=== PATIENT | male | born 1925 | race Caucasian/White ===

== ENCOUNTER 2016-07-18 19:30 | Inpatient (IN) | payer MEDICARE, OTHER ==
[2016-07-18] VITALS (7 sets, daily range): BP systolic 131–149; BP diastolic 47–57
[~2016-07-18] VITALS: Ht 172.7 cm; Wt 70.5 kg
[2016-07-18 19:50] LABS: NEG OBC FOB NEG; POS OBC FOB POS
[2016-07-18 20:08] LABS: BASO % 0 % (0-3); EOS % 1 % (0-3); LYMPH # 0.9 x10^3/uL (1.0-4.8); LYMPH % 10 % (24-48); MEAN CORPUSCULAR HEMOGLOBIN 37 pg (25-35); MEAN CORPUSCULAR HGB CONC 33 g/dL (31-37); MEAN CORPUSCULAR VOLUME 111 fL (79-100); MONO % 14 % (0-9); NEUT % 75 % (31-73); PLATELET COUNT 288 x10^3/uL (140-400); RED BLOOD COUNT 1.41 x10^6/uL (4.30-5.70); RED CELL DISTRIBUTION WIDTH 22.8 % (11.5-14.5); WHITE BLOOD COUNT 9.7 x10^3/uL (4.0-11.0)
[2016-07-18 20:09] LABS: HEMOGLOBIN 5.1 g/dL (13.0-17.5)
[2016-07-18 20:10] LABS: HEMATOCRIT 15.6 % (39.0-53.0)
[2016-07-18] MEDS ORDERED: MORPHINE SULFATE 2 MG/ML DISP.SYRIN. IV PRN (20:15)
[2016-07-18] MEDS ORDERED: ONDANSETRON PF 4 MG/2 ML VIAL. IV PRN (20:15)
[2016-07-18 20:18] LABS: INR 1.1 (0.8-1.1); PROTHROMBIN TIME PATIENT 13.4 SEC (11.7-14.0)
[2016-07-18 20:19] LABS: CALCIUM 8.4 mg/dL (8.5-10.1); CREATININE 1.3 mg/dL (0.7-1.3); GFR 52.1; POTASSIUM 3.5 mmol/L (3.5-5.1)
--- NOTE | 2016-07-18 20:21 | PHYS DOC ---
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 The patient was sent here for further evaluation workup and care. He complains of feeling fatigued and generally malaised. Onset today. Location GI tract. Duration intermittent. No alleviating factors. Review of systems is negative for chest pain shortness of breath fevers chills nausea vomiting. All other review of systems is negative unless otherwise noted in history of present illness. Review of Systems Review of Systems SEE ABOVE. Current Medications Current Medications Current Medications Medications (Trade) Dose Ordered Sig/[place] Start Time Stop Time Status Last Admin Dose Admin Sodium Chloride 1,000 ml @ 1,000 mls/hr 1X ONCE 07/18/16 19:45 07/18/16 20:44 UNV Physical Exam Physical Exam Constitutional: Well developed, well nourished, no acute distress, non-toxic appearance. HENT: Normocephalic, atraumatic, bilateral external ears normal, oropharynx moist, no oral exudates, nose normal. [] Eyes: PERRLA, EOMI, conjunctiva normal, no discharge. Neck: Normal range of motion, no tenderness, supple, no stridor. [] Cardiovascular:Heart rate regular rhythm, no murmur [] Lungs & Thorax: Bilateral breath sounds clear to auscultation Abdomen: Abdomen is soft and nontender. Rectal exam shows visually brown stool. No hemorrhoids noted. Skin: Warm, dry, no erythema, no rash. Pale Back: No tenderness, no CVA tenderness. [] Extremities: No tenderness, no cyanosis, no clubbing, ROM intact, no edema. [] Neurologic: Alert and oriented X 3, normal motor function, normal sensory function, no focal deficits noted. Psychologic: Affect normal, judgement normal, mood normal. [] Current Patient Data Lab Values Laboratory Tests Test 07/18/16 19:35 07/18/16 20:00 Stool Occult Blood Positive (NEG) White Blood Count 9.7 x10^3/uL (4.0-11.0) Red Blood Count 1.41 x10^6/uL (4.30-5.70) L Hemoglobin 5.1 g/dL (13.0-17.5) *L Hematocrit 15.6 % (39.0-53.0) *L Mean Corpuscular Volume 111 fL (79-100) H Mean Corpuscular Hemoglobin 37 pg (25-35) H Mean Corpuscular Hemoglobin Concent 33 g/dL (31-37) Red Cell Distribution Width 22.8 % (11.5-14.5) H Platelet Count 288 x10^3/uL (140-400) Neutrophils (%) (Auto) 75 % (31-73) H Lymphocytes (%) (Auto) 10 % (24-48) L Monocytes (%) (Auto) 14 % (0-9) H Eosinophils (%) (Auto) 1 % (0-3) Basophils (%) (Auto) 0 % (0-3) Neutrophils # (Auto) 7.3 x10^3uL (1.8-7.7) Lymphocytes # (Auto) 0.9 x10^3/uL (1.0-4.8) L Monocytes # (Auto) 1.3 x10^3/uL (0.0-1.1) H Eosinophils # (Auto) 0.1 x10^3/uL (0.0-0.7) Basophils # (Auto) 0.0 x10^3/uL (0.0-0.2) Platelet Estimate Pending Laboratory Tests 07/18/16 20:00 EKG EKG [] Radiology/Procedures Radiology/Procedures [] Course & Med Decision Making Course & Med Decision Making Pertinent Labs and Imaging studies reviewed. (See chart for details) [] 89-year-old male presenting with a severe anemia. Vital signs showed a heart rate of 85. Maintaining a normal blood pressure. Patient was mildly pale on exam. Rectal exam showed visibly dark brown stool. No gross blood on rectal exam. Blood work obtained which confirmed severe anemia. Type and cross obtained. Transfusion initiated. I consulted to Dr. Morales from GI and spoke on the phone with him about the patient. The patient was then admitted to our hospital for further evaluation workup and care. Dragon Disclaimer Dragon Disclaimer This electronic medical record was generated, in whole or in part, using a voice recognition dictation system. Departure Departure Impression: Primary Impression: GI bleed Additional Impressions: Severe anemia History of bladder cancer Disposition: ADMITTED INPATIENT Admitting Physician: Willie Luciano Condition: IMPROVED Critical Care Time Critical care time was [41] minutes exclusive of procedures. Time was spent evaluating the patient, reviewing blood work, discussing with the admitting provider, reevaluating the patient, ordering the administration of blood products and documenting. Problem Qualifiers Primary Impression: GI bleed GI bleed type/associated pathology: unspecified gastrointestinal hemorrhage type Qualified Codes: K92.2 - Gastrointestinal hemorrhage, unspecified BLANCO DE LOS SANTOS MD July 18, 2016 20:21
[2016-07-18 20:24] LABS: ALBUMIN 2.5 g/dL (3.4-5.0); DIRECT BILIRUBIN 0.1 mg/dL (0.0-0.2); TOTAL BILIRUBIN 0.2 mg/dL (0.2-1.0); TOTAL PROTEIN 5.5 g/dL (6.4-8.2)
[2016-07-18] MEDS ORDERED: ASPI-482 PO (20:24)
[2016-07-18] MEDS ORDERED: IPRA12.92 IH (20:24)
[2016-07-18] MEDS ORDERED: CITA10TA8 PO (20:24)
[2016-07-18] MEDS ORDERED: HYDR-971 PO (20:25)
[2016-07-18] MEDS ORDERED: NYST100054 PO (20:25)
[2016-07-18] MEDS ORDERED: ONDA4TAB7 PO (20:26)
[2016-07-18] MEDS ORDERED: SIMV20TA3 PO (20:26)
[2016-07-18] MEDS ORDERED: LORA1TAB PO (20:26)
[2016-07-18] MEDS ORDERED: IPRA4AER IH (20:26)
[2016-07-18] MEDS ORDERED: IV NORMAL SALINE 1000ML BAG 1,000 ML IV ONE (20:30)
[2016-07-18 21:28] LABS: % EOS 2 % (0-5); ANISOCYTOSIS MOD; PLT ESTIMATE ADEQUATE (ADEQUATE)
[2016-07-18] MEDS ORDERED: IV NORMAL SALINE 1000ML BAG 1,000 ML IV SCH (22:00)
[2016-07-18] MEDS: NYSTATIN 100,000 UNITS/ML 5 ML ORAL.SUSP. SWSW SCH (22:30)
[2016-07-18] MEDS ORDERED: IPRATRPIUM/ALBUTEROL 0.5/2.5MG 3 ML NEBU. NEB ONE (22:30)
[2016-07-19] VITALS (15 sets, daily range): BP systolic 137–177; BP diastolic 57–78
[2016-07-19] MEDS: IV NORMAL SALINE 1000ML BAG 1,000 ML IV SCH ×2 (06:00→19:20)
[2016-07-19 06:11] LABS: BASO % 0 % (0-3); EOS % 1 % (0-3); HEMATOCRIT 21.2 % (39.0-53.0); HEMOGLOBIN 7.3 g/dL (13.0-17.5); LYMPH % 10 % (24-48); MEAN CORPUSCULAR HEMOGLOBIN 36 pg (25-35); MEAN CORPUSCULAR HGB CONC 34 g/dL (31-37); MEAN CORPUSCULAR VOLUME 104 fL (79-100); MONO % 12 % (0-9); NEUT % 77 % (31-73); PLATELET COUNT 267 x10^3/uL (140-400); RED BLOOD COUNT 2.04 x10^6/uL (4.30-5.70); RED CELL DISTRIBUTION WIDTH 17.2 % (11.5-14.5); WHITE BLOOD COUNT 9.8 x10^3/uL (4.0-11.0)
[2016-07-19 06:21] LABS: CALCIUM 7.9 mg/dL (8.5-10.1); GFR 70.5; POTASSIUM 3.3 mmol/L (3.5-5.1)
[2016-07-19] MEDS: IPRATRPIUM/ALBUTEROL 0.5/2.5MG 3 ML NEBU. NEB SCH ×4 (07:25→19:34)
[2016-07-19] MEDS: NYSTATIN 100,000 UNITS/ML 5 ML ORAL.SUSP. SWSW SCH ×4 (08:43→20:49)
--- NOTE | 2016-07-19 08:58 | PDOC2 ---
CONSULT Date of Consult Date of Consult DATE: 07/19/16 TIME: 08:40 Reason for Consult Reason for Consult: Anemia/heme positive stool. Referring Physician Referring Physician: Dr. Luciano Source Source: Chart review, Patient History of Present Illness Reason for Visit: 89 y/o male sent from [place] after hemoglobin noted to be low (4-5). Per old records, baseline is 8-rob. No reports of any overt bleeding from staff or him ; in ER, heme positive brown stool. Currently denying pain, nausea or vomiting. Chronic issues with constipation; uses fiber with resultant diarrhea. Does not use regularly. Recently in [facility] with pneumonia and generally dilated GI tract/question of sigmoid volvulus, though sigmoidoscopy there w/in the week did not confirm and felt to have to have extrinsic bowel compression by the endoscopist. MCV there and here elevated--did not see any iron, b12 or folate determinations, though lab format difficult. 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 Admits to occasional heartburn w/o dysphagia. No PUD, GB, liver or pancreatic history above metastatic disease. Former smoker. No current alcohol use. On ASA 81mg daily; apparently no NSAID use. While at [facility], some consideration of EGD due to dilated stomach, but not done there or ever per him. Recalls no prior total colonoscopy (though sigmoid last week apparently w/o intrinsic lesion to transverse. GI family history not pertinent. Past Medical History Cardiovascular: CHF, Hyperlipidemia Pulmonary: COPD, Pneumonia Heme/Onc: Cancer (urothelial, s/p right nephrectomy) Psych: Anxiety, Depression Musculoskeletal: Osteoarthritis Past Surgical History Past Surgical History: Other (right nephrectomy) Family History Family History Not pertinent. Social History Quit ALCOHOL: none Drugs: None Lives: [facility] Current Problem List Problem List Problems Medical Problems: (1) GI bleed Status: Acute (2) History of bladder cancer Status: Acute (3) Severe anemia Status: Acute Current Medications Current Medications Current Medications Sodium Chloride 1,000 ml @ 1,000 mls/hr 1X ONCE IV Last administered on t 20:30; Start 07/18/16 at 20:30; Stop 07/18/16 at 21:29; Status DC Ondansetron HCl (Zofran) 4 mg PRN Q8HRS PRN IV NAUSEA/VOMITING; Start 07/18/16 at 20:15; Stop 07/19/16 at 20:14 Morphine Sulfate 2 mg PRN Q2HR PRN IV PAIN; Start 07/18/16 at 20:15; Stop 07/19 at 20:14 Sodium Chloride 1,000 ml @ 125 mls/hr Q8H IV Last administered on 07/18/16 22 :00; Start 07/18/16 at 22:00; Stop 07/19/16 at 05:44; Status DC Non-Formulary Medication 2 inhaler QID IH ; Start 07/19/16 at 09:00; Status UNV Nystatin 5 ml [id number] ; Start 07/18/16 at 22:30 Albuterol/ Ipratropium (Duoneb) 3 ml RTQID NEB Last administered on 07/19/16 07:25; Start 07/19/16 at 08:00 Albuterol/ Ipratropium (Duoneb) 3 ml 1X ONCE NEB ; Start 07/18/16 at 22:30; Stop 07/18/16 at 22:31; Status DC Sodium Chloride 1,000 ml @ 75 mls/hr [id number] IV Last administered on 06:00; Start 07/19/16 at 06:00 Active Scripts Active Reported Zofran (Ondansetron Hcl) 4 Mg Tablet 1 Tab PO Q6HRS Lorazepam 1 Mg Tablet 1 Tab PO TID Simvastatin 20 Mg Tablet 1 Tab PO QHS Combivent Respimat Inhal (Ipratropium/Albuterol Sulfate) 4 Gm Aer.w.adap 2 Inhaler IH QID Hollins 5-325 Tablet (Acetaminophen/Hydrocodone Bitart) 1 Each Tablet 1-2 Tab PO Q4-6HRS Nystatin 100,000 Unit/1 Ml Oral.susp 5 Ml PO QID Celexa (Citalopram Hydrobromide) 10 Mg Tablet 1 Tab PO DAILY Aspir 81 (Aspirin) 81 Mg Tablet.dr 1 Tab PO DAILY Atrovent Hfa (Ipratropium [place]) 12.9 Gm Hfa.aer.ad 12.9 Gm IH Allergies Allergies: Coded Allergies: pseudoephedrine (Verified Allergy, Intermediate, 07/18/16) ROS Review of System 10-point review otherwise negative. Physical Exam General: Alert, Oriented X3, No acute distress Lungs: Clear to auscultation Heart: Regular rate, Normal S1, Normal S2, No murmurs Abdomen: Normal bowel sounds, Soft, No tenderness, No hepatosplenomegaly, No masses Extremities: No cyanosis, No edema Skin: No significant lesion Neuro: Normal speech, Strength at 5/5 X4 ext, Normal tone, Sensation intact, Cranial nerves 3-12 NL, Reflexes 2+ Psych/Mental Status: Mental status NL, Mood NL MUSCULOSKELETAL: No deformity, No swelling Vitals VITALS Vital Signs Date Time Temp Pulse Resp B/P (MAP) Pulse Ox O2 Delivery O2 Flow Rate FiO2 07/19/16 07:27 93 Room Air 07/19/16 07:00 82 16 156/57 (90) 07/19/16 04:00 99.0 99.0 Labs Labs Laboratory Tests Test 07/18/16 19:35 07/18/16 20:00 07/19/16 05:30 Stool Occult Blood Positive (NEG) White Blood Count 9.7 x10^3/uL (4.0-11.0) 9.8 x10^3/uL (4.0-11.0) Red Blood Count 1.41 x10^6/uL (4.30-5.70) 2.04 x10^6/uL (4.30-5.70) Hemoglobin 5.1 g/dL (13.0-17.5) 7.3 g/dL (13.0-17.5) Hematocrit 15.6 % (39.0-53.0) 21.2 % (39.0-53.0) Mean Corpuscular Volume 111 fL (79-100) 104 fL (79-100) Mean Corpuscular Hemoglobin 37 pg (25-35) 36 pg (25-35) Mean Corpuscular Hemoglobin Concent 33 g/dL (31-37) 34 g/dL (31-37) Red Cell Distribution Width 22.8 % (11.5-14.5) 17.2 % (11.5-14.5) Platelet Count 288 x10^3/uL (140-400) 267 x10^3/uL (140-400) Neutrophils (%) (Auto) 75 % (31-73) 77 % (31-73) Lymphocytes (%) (Auto) 10 % (24-48) 10 % (24-48) Monocytes (%) (Auto) 14 % (0-9) 12 % (0-9) Eosinophils (%) (Auto) 1 % (0-3) 1 % (0-3) Basophils (%) (Auto) 0 % (0-3) 0 % (0-3) Neutrophils # (Auto) 7.3 x10^3uL (1.8-7.7) 7.5 x10^3uL (1.8-7.7) Lymphocytes # (Auto) 0.9 x10^3/uL (1.0-4.8) 1.0 x10^3/uL (1.0-4.8) Monocytes # (Auto) 1.3 x10^3/uL (0.0-1.1) 1.2 x10^3/uL (0.0-1.1) Eosinophils # (Auto) 0.1 x10^3/uL (0.0-0.7) 0.1 x10^3/uL (0.0-0.7) Basophils # (Auto) 0.0 x10^3/uL (0.0-0.2) 0.0 x10^3/uL (0.0-0.2) Segmented Neutrophils % 83 % (35-66) Lymphocytes % 9 % (24-48) Monocytes % 6 % (0-10) Eosinophils % 2 % (0-5) Platelet Estimate Adequate (ADEQUATE) Anisocytosis Mod Macrocytosis Mod Prothrombin Time 13.4 SEC (11.7-14.0) Prothromb Time International Ratio 1.1 (0.8-1.1) Activated Partial Thromboplast Time 29 SEC (24-38) Sodium Level 146 mmol/L (136-145) 145 mmol/L (136-145) Potassium Level 3.5 mmol/L (3.5-5.1) 3.3 mmol/L (3.5-5.1) Chloride Level 109 mmol/L (98-107) 110 mmol/L (98-107) Carbon Dioxide Level 27 mmol/L (21-32) 27 mmol/L (21-32) Anion Gap 10 (6-14) 8 (6-14) Blood Urea Nitrogen 28 mg/dL (8-26) 24 mg/dL (8-26) Creatinine 1.3 mg/dL (0.7-1.3) 1.0 mg/dL (0.7-1.3) Estimated GFR (Cockcroft-Gault) 52.1 70.5 Glucose Level 111 mg/dL (70-99) 90 mg/dL (70-99) Calcium Level 8.4 mg/dL (8.5-10.1) 7.9 mg/dL (8.5-10.1) Total Bilirubin 0.2 mg/dL (0.2-1.0) Direct Bilirubin 0.1 mg/dL (0.0-0.2) Aspartate Amino Transf (AST/SGOT) 45 U/L (15-37) Alanine Aminotransferase (ALT/SGPT) 37 U/L (16-63) Alkaline Phosphatase 83 U/L (46-116) Total Protein 5.5 g/dL (6.4-8.2) Albumin 2.5 g/dL (3.4-5.0) Laboratory Tests Test 07/18/16 19:35 07/18/16 20:00 07/19/16 05:30 Stool Occult Blood Positive (NEG) White Blood Count 9.7 x10^3/uL (4.0-11.0) 9.8 x10^3/uL (4.0-11.0) Red Blood Count 1.41 x10^6/uL (4.30-5.70) 2.04 x10^6/uL (4.30-5.70) Hemoglobin 5.1 g/dL (13.0-17.5) 7.3 g/dL (13.0-17.5) Hematocrit 15.6 % (39.0-53.0) 21.2 % (39.0-53.0) Mean Corpuscular Volume 111 fL (79-100) 104 fL (79-100) Mean Corpuscular Hemoglobin 37 pg (25-35) 36 pg (25-35) Mean Corpuscular Hemoglobin Concent 33 g/dL (31-37) 34 g/dL (31-37) Red Cell Distribution Width 22.8 % (11.5-14.5) 17.2 % (11.5-14.5) Platelet Count 288 x10^3/uL (140-400) 267 x10^3/uL (140-400) Neutrophils (%) (Auto) 75 % (31-73) 77 % (31-73) Lymphocytes (%) (Auto) 10 % (24-48) 10 % (24-48) Monocytes (%) (Auto) 14 % (0-9) 12 % (0-9) Eosinophils (%) (Auto) 1 % (0-3) 1 % (0-3) Basophils (%) (Auto) 0 % (0-3) 0 % (0-3) Neutrophils # (Auto) 7.3 x10^3uL (1.8-7.7) 7.5 x10^3uL (1.8-7.7) Lymphocytes # (Auto) 0.9 x10^3/uL (1.0-4.8) 1.0 x10^3/uL (1.0-4.8) Monocytes # (Auto) 1.3 x10^3/uL (0.0-1.1) 1.2 x10^3/uL (0.0-1.1) Eosinophils # (Auto) 0.1 x10^3/uL (0.0-0.7) 0.1 x10^3/uL (0.0-0.7) Basophils # (Auto) 0.0 x10^3/uL (0.0-0.2) 0.0 x10^3/uL (0.0-0.2) Segmented Neutrophils % 83 % (35-66) Lymphocytes % 9 % (24-48) Monocytes % 6 % (0-10) Eosinophils % 2 % (0-5) Platelet Estimate Adequate (ADEQUATE) Anisocytosis Mod Macrocytosis Mod Prothrombin Time 13.4 SEC (11.7-14.0) Prothromb Time International Ratio 1.1 (0.8-1.1) Activated Partial Thromboplast Time 29 SEC (24-38) Sodium Level 146 mmol/L (136-145) 145 mmol/L (136-145) Potassium Level 3.5 mmol/L (3.5-5.1) 3.3 mmol/L (3.5-5.1) Chloride Level 109 mmol/L (98-107) 110 mmol/L (98-107) Carbon Dioxide Level 27 mmol/L (21-32) 27 mmol/L (21-32) Anion Gap 10 (6-14) 8 (6-14) Blood Urea Nitrogen 28 mg/dL (8-26) 24 mg/dL (8-26) Creatinine 1.3 mg/dL (0.7-1.3) 1.0 mg/dL (0.7-1.3) Estimated GFR (Cockcroft-Gault) 52.1 70.5 Glucose Level 111 mg/dL (70-99) 90 mg/dL (70-99) Calcium Level 8.4 mg/dL (8.5-10.1) 7.9 mg/dL (8.5-10.1) Total Bilirubin 0.2 mg/dL (0.2-1.0) Direct Bilirubin 0.1 mg/dL (0.0-0.2) Aspartate Amino Transf (AST/SGOT) 45 U/L (15-37) Alanine Aminotransferase (ALT/SGPT) 37 U/L (16-63) Alkaline Phosphatase 83 U/L (46-116) Total Protein 5.5 g/dL (6.4-8.2) Albumin 2.5 g/dL (3.4-5.0) Images Images None here. Assessment/Plan Assessment/Plan IMP: 1. Anemia, likely multifactorial--malignancy, ACD, chemo probably contribute. Elevated MCV would argue against pure iron deficiency. Given bony mets, myelophthesis? 2. Minor dyspepsia. 3. Chronic constipation; pain meds likely aggravate, but historically good response to OTC's. 4. Heme positive stool. REC: 1. Given underlying, likely at some point terminal, malignancy an extensive w/u for the heme positivity seems not to be indicated. 2. Will check B12 and folate levels and see if can do iron profile on ER blood prior to transfusion. 3. Transfuse prn; address any deficiencies found. 4. Consider Palliative Care opinion. --other pending. Thank you for allowing me to assist in the care of this patient. Please call if questions. NIVIA BUCHANAN MD July 19, 2016 08:58
[2016-07-19] MEDS ORDERED: IPRATROPIUM IH SCH (09:00)
[2016-07-19] MEDS ORDERED: ALBUTEROL SULFATE IH SCH (09:00)
--- NOTE | 2016-07-19 09:18 | ACF ---
Admission Forms Criteria ANEMIA, IRON DEFICIENCY OR UNSPECIFIED Clinical Indications for Inpatient Care (Place 'X' for any and all applicable criteria): Admission is indicated for ANY ONE of the following(1)(2)(3)(4)(5)(6)(7): [X] I. Inpatient admission required rather than observation care (Also use Anemia, Iron Deficiency or Unspecified: Observation Care guideline as appropriate) because of ANY ONE of the following: [] a) Hemodynamic instability that is severe or persistent [] b) Active bleeding that cannot be rapidly controlled [] c) CVS symptoms (i.e., dyspnea, chest pain, heart failure) that are severe or persistent [] d) Neurologic symptoms (i.e., cognitive impairment, recurrent syncope or near syncope) that are severe or persistent [] e) Cardiac arrhythmias of immediate concern [] f) Acute peripheral ischemia (e.g., pulseless, cool, mottled, or cyanotic extremity) [] g) High-risk low platelet count [] h) Acute renal failure [] i) Ongoing transfusion for blood loss (greater than 2 units) [] j) IV fluid to replace significant ongoing (eg, >24 hours) losses (> 3 L/m2 per day) [] k) Pulmonary artery catheter monitoring [] l) Supplemental oxygen or respiratory treatments for over 24 hours that are performable only in acute inpatient setting [] m) Immediate inpatient surgery [X] n) Other condition, treatment or monitoring requiring inpatient admission [] II Active massive hemorrhage [] III. Active hemolysis with rapidly progressive anemia [A](6) Extended stay beyond goal length of stay may be needed for (17)(18) []a) Diagnosed cause of anemia requiring longer hospitalization (eg, active GI bleeding, immune hemolysis requiring electrophoresis, complications of malignancy requiring acute care []b) Continued emergent anemia indicators (23) []c) Transfusion reactions []d) Associated leukopenia or thrombocytopenia needing inpatient care []e) Active comorbidities (eg, renal failure, heart failure) The original [facility] Care Guidelines content created by [facility] has been revised. The portions of the content which have been revised are identified through the use of italic text or in bold. [facility] Guidelines has neither reviewed nor approved the modified material. All other unmodified content is copyright [facility] Care Guidelines. Please see references footnoted in the original [facility] edition 2016 Admission Criteria Met?: Yes LA GRIFFITHS July 19, 2016 09:18
[2016-07-19 09:52] LABS: % SAT IRON 50 % (15-34); IRON,SERUM 106 ug/dL (65-175)
[2016-07-19] MEDS ORDERED: HYDROcodone/APAP 5/325MG 1 TAB TABLET PO PRN (12:30)
[2016-07-19] MEDS ORDERED: POTASSIUM CHLORIDE 20MEQ 50 ML IV ONE (13:00)
[2016-07-19] MEDS ORDERED: POTASSIUM CHLORIDE 20 MEQ TABLET.ER. PO ONE (13:15)
[2016-07-19] MEDS: CITALOPRAM 10 MG TABLET. PO SCH (13:33)
--- NOTE | 2016-07-19 13:33 | HP ---
ADMIT DATE: 07/19/2016 CHIEF COMPLAINT: Anemia. HISTORY OF PRESENT ILLNESS: The patient is a pleasant 89-year-old male who has been suffering from acute on chronic anemia for some time. He apparently did have a GI bleed recently. He was at [facility]. He also has bladder cancer. He is on chemotherapy. He had chemotherapy 2 weeks ago. He was sent from [facility] to [facility] us. It is a residential facility. While there, they did a routine blood draw which has shown hemoglobin of 5. He has now been transferred to our facility. He is in the ICU. We gave him 2 units of packed red blood cells last night. This morning, his hemoglobin is up to 7.3. We plan to consult Hematology/Oncology and Gastroenterology. PAST MEDICAL HISTORY: Bladder cancer, chemotherapy, and sigmoidoscopy. ALLERGIES: PSEUDOEPHEDRINE. FAMILY HISTORY: Coronary artery disease. SOCIAL HISTORY: Does not drink, smoke, or take drugs. MEDICATIONS: Reviewed. Please refer to the MRAD. REVIEW OF SYSTEMS: GENERAL: He complains of weakness. SKIN: No bruising, hair changes, or rashes. EYES: No blurred, double, or loss of vision. NOSE AND THROAT: No history of nosebleeds, hoarseness, or sore throat. HEART: No history of palpitations, chest pain, or shortness of breath on exertion. LUNGS: Denies cough, hemoptysis, wheezing, or shortness of breath. GASTROINTESTINAL: Denies changes in appetite, nausea, vomiting, diarrhea, or constipation. GENITOURINARY: No history of frequency, urgency, hesitancy, or nocturia. NEUROLOGIC: Denies history of numbness, tingling, tremor, or weakness. PSYCHIATRIC: He complains of depression. He wants to get out of the hospital. ENDOCRINE: No history of heat or cold intolerance, polyuria, or polydipsia. EXTREMITIES: Denies muscle weakness, joint pain, pain on walking, or stiffness. PHYSICAL EXAMINATION: VITAL SIGNS: Temperature afebrile, pulse 67, respirations 18, and blood pressure 144/90. GENERAL: He is alert, cooperative. His family is present. They are good support for him. HEART: Normal S1, S2. LUNGS: Clear. ABDOMEN: Soft, decreased bowel sounds. EXTREMITIES: No edema. SKIN: No rashes. ENDOCRINE: No thyromegaly. LYMPHATICS: No cervical nodes. HEMATOPOIETIC: No bruising. PSYCHIATRIC: He seems depressed. LABORATORY DATA: White count 9, hemoglobin 5, it is now up to 7.3; and platelets 288. Electrolytes: Sodium 146, potassium 3.5, chloride 109, bicarbonate 27, BUN 28, creatinine 1.3, and glucose 111. AST slightly high at 45 and total protein low at 5.5. INR is 1. ASSESSMENT AND PLAN: Acute on chronic gastrointestinal bleed and acute on chronic anemia, suspect multifactorial including bone marrow suppression from chemotherapy and a concomitant gastrointestinal bleed. The patient has been admitted. We will consult Gastroenterology and Hematology/Oncology. Transfuse p.r.n. hemoglobin less than 8. Resume home medicines, PT, OT, frequent hemoglobin levels, and ICU monitoring. PROGNOSIS: Guarded. MAAME MORA DO DR: ADEN/gloria JOB#: [id number] / [id number]
[2016-07-19] MEDS ORDERED: LORazepam 1 MG TABLET PO PRN (14:00)
[2016-07-19] MEDS ORDERED: LORazepam 1 MG TABLET PO SCH (14:00)
[2016-07-19] MEDS ORDERED: SIMVASTATIN 20 MG TABLET PO SCH (21:00)
[2016-07-19] MEDS: amLODIPine BESYLATE 10 MG TABLET PO SCH (21:30)
[2016-07-20 00:05] VITALS: BP 188/79
[2016-07-20] MEDS: METOPROLOL TART IMMED RELEASE 25 MG TABLET. PO SCH ×3 (01:13→21:01)
[2016-07-20 03:26] VITALS: BP 129/56
[2016-07-20 07:00] VITALS: BP 168/74
[2016-07-20] MEDS: NYSTATIN 100,000 UNITS/ML 5 ML ORAL.SUSP. SWSW SCH ×4 (08:19→21:00)
[2016-07-20] MEDS: CITALOPRAM 10 MG TABLET. PO SCH (08:20)
[2016-07-20] MEDS: IPRATRPIUM/ALBUTEROL 0.5/2.5MG 3 ML NEBU. NEB SCH ×4 (08:20→19:29)
[2016-07-20] MEDS: amLODIPine BESYLATE 10 MG TABLET PO SCH (08:21)
--- NOTE | 2016-07-20 08:43 | PDOC ---
G I PROGRESS NOTE Subjective No GI complaints. Denies abdominal pain. Eating w/o problem. Objective No reports of any overt bleeding. Physical Exam Lungs clear. RRR Abdomen soft, not tender nor distended. Review of Relevant I have reviewed the following items earnest (where applicable) has been applied. Labs Laboratory Tests Test 07/18/16 19:35 07/18/16 20:00 07/19/16 05:30 07/19/16 06:00 Stool Occult Blood Positive (NEG) White Blood Count 9.7 x10^3/uL (4.0-11.0) 9.8 x10^3/uL (4.0-11.0) Red Blood Count 1.41 x10^6/uL (4.30-5.70) 2.04 x10^6/uL (4.30-5.70) Hemoglobin 5.1 g/dL (13.0-17.5) 7.3 g/dL (13.0-17.5) Hematocrit 15.6 % (39.0-53.0) 21.2 % (39.0-53.0) Mean Corpuscular Volume 111 fL (79-100) 104 fL (79-100) Mean Corpuscular Hemoglobin 37 pg (25-35) 36 pg (25-35) Mean Corpuscular Hemoglobin Concent 33 g/dL (31-37) 34 g/dL (31-37) Red Cell Distribution Width 22.8 % (11.5-14.5) 17.2 % (11.5-14.5) Platelet Count 288 x10^3/uL (140-400) 267 x10^3/uL (140-400) Neutrophils (%) (Auto) 75 % (31-73) 77 % (31-73) Lymphocytes (%) (Auto) 10 % (24-48) 10 % (24-48) Monocytes (%) (Auto) 14 % (0-9) 12 % (0-9) Eosinophils (%) (Auto) 1 % (0-3) 1 % (0-3) Basophils (%) (Auto) 0 % (0-3) 0 % (0-3) Neutrophils # (Auto) 7.3 x10^3uL (1.8-7.7) 7.5 x10^3uL (1.8-7.7) Lymphocytes # (Auto) 0.9 x10^3/uL (1.0-4.8) 1.0 x10^3/uL (1.0-4.8) Monocytes # (Auto) 1.3 x10^3/uL (0.0-1.1) 1.2 x10^3/uL (0.0-1.1) Eosinophils # (Auto) 0.1 x10^3/uL (0.0-0.7) 0.1 x10^3/uL (0.0-0.7) Basophils # (Auto) 0.0 x10^3/uL (0.0-0.2) 0.0 x10^3/uL (0.0-0.2) Segmented Neutrophils % 83 % (35-66) Lymphocytes % 9 % (24-48) Monocytes % 6 % (0-10) Eosinophils % 2 % (0-5) Platelet Estimate Adequate (ADEQUATE) Anisocytosis Mod Macrocytosis Mod Prothrombin Time 13.4 SEC (11.7-14.0) Prothromb Time International Ratio 1.1 (0.8-1.1) Activated Partial Thromboplast Time 29 SEC (24-38) Sodium Level 146 mmol/L (136-145) 145 mmol/L (136-145) Potassium Level 3.5 mmol/L (3.5-5.1) 3.3 mmol/L (3.5-5.1) Chloride Level 109 mmol/L (98-107) 110 mmol/L (98-107) Carbon Dioxide Level 27 mmol/L (21-32) 27 mmol/L (21-32) Anion Gap 10 (6-14) 8 (6-14) Blood Urea Nitrogen 28 mg/dL (8-26) 24 mg/dL (8-26) Creatinine 1.3 mg/dL (0.7-1.3) 1.0 mg/dL (0.7-1.3) Estimated GFR (Cockcroft-Gault) 52.1 70.5 Glucose Level 111 mg/dL (70-99) 90 mg/dL (70-99) Calcium Level 8.4 mg/dL (8.5-10.1) 7.9 mg/dL (8.5-10.1) Total Bilirubin 0.2 mg/dL (0.2-1.0) Direct Bilirubin 0.1 mg/dL (0.0-0.2) Aspartate Amino Transf (AST/SGOT) 45 U/L (15-37) Alanine Aminotransferase (ALT/SGPT) 37 U/L (16-63) Alkaline Phosphatase 83 U/L (46-116) Total Protein 5.5 g/dL (6.4-8.2) Albumin 2.5 g/dL (3.4-5.0) Iron Level 106 ug/dL (65-175) Total Iron Binding Capacity 211 ug/dL (250-450) Iron Saturation 50 % (15-34) Nasal Screen MRSA (PCR) Negative (Negative) B12 and folate pending. Iron studies likely confounded by transfusion, but low TIBC c/w element of ACD. Medications Current Medications Sodium Chloride 1,000 ml @ 1,000 mls/hr 1X ONCE IV Last administered on 20:30; Start 07/18/16 at 20:30; Stop 07/18/16 at 21:29; Status DC Ondansetron HCl (Zofran) 4 mg PRN Q8HRS PRN IV NAUSEA/VOMITING; Start 07/18/16 at 20:15; Stop 07/19/16 at 20:14; Status DC Morphine Sulfate 2 mg PRN Q2HR PRN IV PAIN; Start 07/18/16 at 20:15; Stop 07/19 at 20:14; Status DC Sodium Chloride 1,000 ml @ 125 mls/hr Q8H IV Last administered on 07/18/16 22 :00; Start 07/18/16 at 22:00; Stop 07/19/16 at 05:44; Status DC Non-Formulary Medication 2 inhaler QID IH ; Start 07/19/16 at 09:00; Status UNV Nystatin 5 ml [id number] Last administered on 07/20/16 08:19; Start at 22:30 Albuterol/ Ipratropium (Duoneb) 3 ml RTQID NEB Last administered on 07/20/16 08:20; Start 07/19/16 at 08:00 Albuterol/ Ipratropium (Duoneb) 3 ml 1X ONCE NEB ; Start 07/18/16 at 22:30; Stop 07/18/16 at 22:31; Status DC Sodium Chloride 1,000 ml @ 75 mls/hr [id number] IV Last administered on 06:00; Start 07/19/16 at 06:00; Stop 07/19/16 at 21:18; Status DC Citalopram Hydrobromide (CeleXA) 10 mg DAILY PO Last administered on 07/20/16 08:20; Start 07/19/16 at 13:00 Acetaminophen/ Hydrocodone Bitart (Lortab 5/325) . QIDPRN PRN PO MODERATE TO SEVERE PAIN; Start 07/19/16 at 12:30 Lorazepam (Ativan) 1 mg TID PO ; Start 07/19/16 at 14:00; Stop 07/19/16 at 14:00 ; Status DC Simvastatin (Zocor) 20 mg QHS PO Last administered on 07/19/16 20:49; Start at 21:00; Stop 07/19/16 at 21:21; Status DC Lorazepam (Ativan) 1 mg PRN TID PRN PO ANXIETY / AGITATION Last administered on 07/20/16 01:13; Start 07/19/16 at 14:00 Potassium Chloride 50 ml @ 50 mls/hr 1X ONCE IV ; Start 07/19/16 at 13:00; Stop 07/19/16 at 13:59; Status Cancel Levofloxacin/ Dextrose 50 ml @ 50 mls/hr Q24H IV ; Start 07/19/16 at 13:00; Status Cancel Potassium Chloride (Klor-Con) 20 meq 1X ONCE PO Last administered on 13:33; Start 07/19/16 at 13:15; Stop 07/19/16 at 13:16; Status DC Amlodipine Besylate (Norvasc) 10 mg DAILY PO Last administered on 07/20/16 08: 21; Start 07/19/16 at 21:30 Atorvastatin Calcium (Lipitor) 10 mg QHS PO ; Start 07/20/16 at 21:00 Metoprolol Tartrate (Lopressor) 25 mg BID PO Last administered on 07/20/16 08: 20; Start 07/20/16 at 01:00 Active Scripts Active Reported Zofran (Ondansetron Hcl) 4 Mg Tablet 1 Tab PO Q6HRS Lorazepam 1 Mg Tablet 1 Tab PO TID Simvastatin 20 Mg Tablet 1 Tab PO QHS Combivent Respimat Inhal (Ipratropium/Albuterol Sulfate) 4 Gm Aer.w.adap 2 Inhaler IH QID [place] 5-325 Tablet (Acetaminophen/Hydrocodone Bitart) 1 Each Tablet 1-2 Tab PO Q4-6HRS Nystatin 100,000 Unit/1 Ml Oral.susp 5 Ml PO QID Celexa (Citalopram Hydrobromide) 10 Mg Tablet 1 Tab PO DAILY Aspir 81 (Aspirin) 81 Mg Tablet.dr 1 Tab PO DAILY Atrovent Hfa (Ipratropium [place]) 12.9 Gm Hfa.aer.ad 12.9 Gm IH Vitals/I & O Vital Sign - Last 24 Hours 07/19/16 07/19/16 07/19/16 07/19/16 09:00 10:00 10:58 11:00 Pulse 94 74 84 Resp 18 14 23 B/P (MAP) 159/60 (93) 169/70 (103) 167/72 (103) Pulse Ox 95 96 96 O2 Delivery Room Air Room Air Room Air Room Air 07/19/16 07/19/16 07/19/16 07/19/16 12:00 15:00 16:00 16:13 Temp 97.8 98.1 97.8 98.1 Pulse 79 79 Resp 28 18 B/P (MAP) 155/61 (92) 159/68 (98) Pulse Ox 98 97 O2 Delivery Room Air Room Air Room Air Room Air 07/19/16 07/19/16 07/19/16 07/19/16 19:25 20:00 20:45 21:30 Temp 97.9 97.9 Pulse 92 92 Resp 18 B/P (MAP) 177/78 (111) 177/78 Pulse Ox 95 96 O2 Delivery Room Air Room Air Room Air 07/20/16 07/20/16 07/20/16 07/20/16 00:05 01:13 03:26 07:00 Temp 98.1 98.0 98.0 98.1 98.0 98.0 Pulse 87 87 80 83 Resp 18 18 18 B/P (MAP) 188/79 (115) 188/79 129/56 (80) 168/74 (105) Pulse Ox 93 94 95 O2 Delivery Room Air Room Air Room Air 07/20/16 07/20/16 07/20/16 08:20 08:21 08:23 Pulse 83 83 B/P (MAP) 168/74 168/74 Pulse Ox 96 O2 Delivery Room Air Intake and Output 07/19/16 07/19/16 07/20/16 15:00 23:00 07:00 Intake Total 150 ml 200 ml 400 ml Output Total 45 ml 600 ml 300 ml Balance 105 ml -400 ml 100 ml Problem List Problems Medical Problems: (1) GI bleed Status: Acute (2) History of bladder cancer Status: Acute (3) Severe anemia Status: Acute Assessment Anemia, multifactorial. Plan of Care Note Await pending data. Monitor for overt bleeding. OK to consider discharge from GI standpoint. NIVIA BUCHANAN MD July 20, 2016 08:43
--- NOTE | 2016-07-20 10:55 | PDOC1 ---
History and Physical Date of Admission Date of Admission DATE: 07/18/16 Identification/Chief Complaint Chief Complaint anemia, metastatic bladder cancer Problems: History of Present Illness History of Present Illness 89 yo M with prolonged unpleasant stay at [facility] earlier this month, who had just been transferred to [place] across the street, but when they checked Hgb values for baseline values there, he was found on 07/18 to have Hgb ~5g/dL range. 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 Heme positive brown stools. He rec'd 2U PRBCs overnight on 07/18/16, and his Hgb rebounded from 5.1 g/dL to 7.3g/dL yesterday to 8.4g/dL today, more than an appropriate response. He is itching to get back to rehab. Two months ago , of note, he was living alone, maintaining well by himself. Certainly he has had setbacks since then. Past Medical History Cardiovascular: CHF, Hyperlipidemia Pulmonary: COPD, Pneumonia Heme/Onc: Cancer (urothelial, s/p right nephrectomy) Psych: Anxiety, Depression Musculoskeletal: Osteoarthritis Past Surgical History Past Surgical History: Other (right nephrectomy) Social History Smoke: Quit ALCOHOL: none Drugs: None Current Problem List Problem List Problems Medical Problems: (1) GI bleed Status: Acute (2) History of bladder cancer Status: Acute (3) Severe anemia Status: Acute Problems: Current Medications Current Medications Current Medications Sodium Chloride 1,000 ml @ 1,000 mls/hr 1X ONCE IV Last administered on 20:30; Start 07/18/16 at 20:30; Stop 07/18/16 at 21:29; Status DC Ondansetron HCl (Zofran) 4 mg PRN Q8HRS PRN IV NAUSEA/VOMITING; Start 07/18/16 at 20:15; Stop 07/19/16 at 20:14; Status DC Morphine Sulfate 2 mg PRN Q2HR PRN IV PAIN; Start 07/18/16 at 20:15; Stop 07/19 at 20:14; Status DC Sodium Chloride 1,000 ml @ 125 mls/hr Q8H IV Last administered on 07/18/16 22 :00; Start 07/18/16 at 22:00; Stop 07/19/16 at 05:44; Status DC Non-Formulary Medication 2 inhaler QID IH ; Start 07/19/16 at 09:00; Status UNV Nystatin 5 ml [id number] Last administered on 07/20/16 08:19; Start at 22:30 Albuterol/ Ipratropium (Duoneb) 3 ml RTQID NEB Last administered on 07/20/16 08:20; Start 07/19/16 at 08:00 Albuterol/ Ipratropium (Duoneb) 3 ml 1X ONCE NEB ; Start 07/18/16 at 22:30; Stop 07/18/16 at 22:31; Status DC Sodium Chloride 1,000 ml @ 75 mls/hr [id number] IV Last administered on 06:00; Start 07/19/16 at 06:00; Stop 07/19/16 at 21:18; Status DC Citalopram Hydrobromide (CeleXA) 10 mg DAILY PO Last administered on 07/20/16 08:20; Start 07/19/16 at 13:00 Acetaminophen/ Hydrocodone Bitart (Lortab 5/325) . QIDPRN PRN PO MODERATE TO SEVERE PAIN; Start 07/19/16 at 12:30 Lorazepam (Ativan) 1 mg TID PO ; Start 07/19/16 at 14:00; Stop 07/19/16 at 14:00 ; Status DC Simvastatin (Zocor) 20 mg QHS PO Last administered on 07/19/16 20:49; Start at 21:00; Stop 07/19/16 at 21:21; Status DC Lorazepam (Ativan) 1 mg PRN TID PRN PO ANXIETY / AGITATION Last administered on 07/20/16 01:13; Start 07/19/16 at 14:00 Potassium Chloride 50 ml @ 50 mls/hr 1X ONCE IV ; Start 07/19/16 at 13:00; Stop 07/19/16 at 13:59; Status Cancel Levofloxacin/ Dextrose 50 ml @ 50 mls/hr Q24H IV ; Start 07/19/16 at 13:00; Status Cancel Potassium Chloride (Klor-Con) 20 meq 1X ONCE PO Last administered on 5/27/ 17at 13:33; Start 07/19/16 at 13:15; Stop 07/19/16 at 13:16; Status DC Amlodipine Besylate (Norvasc) 10 mg DAILY PO Last administered on 07/20/16 08: 21; Start 07/19/16 at 21:30 Atorvastatin Calcium (Lipitor) 10 mg QHS PO ; Start 07/20/16 at 21:00 Metoprolol Tartrate (Lopressor) 25 mg BID PO Last administered on 07/20/16 08: 20; Start 07/20/16 at 01:00 Active Scripts Active Reported Zofran (Ondansetron Hcl) 4 Mg Tablet 1 Tab PO Q6HRS Lorazepam 1 Mg Tablet 1 Tab PO TID Simvastatin 20 Mg Tablet 1 Tab PO QHS Combivent Respimat Inhal (Ipratropium/Albuterol Sulfate) 4 Gm Aer.w.adap 2 Inhaler IH QID [place] 5-325 Tablet (Acetaminophen/Hydrocodone Bitart) 1 Each Tablet 1-2 Tab PO Q4-6HRS Nystatin 100,000 Unit/1 Ml Oral.susp 5 Ml PO QID Celexa (Citalopram Hydrobromide) 10 Mg Tablet 1 Tab PO DAILY Aspir 81 (Aspirin) 81 Mg Tablet.dr 1 Tab PO DAILY Atrovent Hfa (Ipratropium [place]) 12.9 Gm Hfa.aer.ad 12.9 Gm IH Allergies Allergies: Coded Allergies: pseudoephedrine (Verified Allergy, Intermediate, 07/18/16) ROS General: YES: Fatigue, Malaise, No: Chills, Night Sweats, Appetite, Other PSYCHOLOGICAL ROS: YES: Anxiety, Depression Eyes: No Blurry vision, No Decreased vision, No Double vision, No Dry eyes, No Excessive tearing, No Eye Pain, No Itchy Eyes, No Loss of vision, No Photophobia , No Scotomata, No Uses contacts, No Uses glasses, No Other HEENT: No: Heacaches, Visual Changes, Hearing change, Nasal congestion, Nasal discharge, Oral lesions, Sinus pain, Sore Throat, Epistaxis, Sneezing, Snoring, Tinnitus, Vertigo, Vocal changes, Other ALLERGY AND IMMUNOLOGY: No: Hives, Insect Bite Sensitivity, Itchy/Watery Eyes, Nasal Congestion, Post Nasal Drip, Seasonal Allergies, Other Hematological and Lymphatic: YES: Blood Transfusions Respiratory: No: Cough, Hemoptysis, Orthopnea, Pleuritic Pain, Shortness of breath, SOB with excertion, Sputum Changes, Stridor, Tachypnea, Wheezing, Other Cardiovascular: yes Edema Gastrointestinal: Yes Nausea, Yes Abdominal Pain, Yes Other (trouble swallowing ) Genitourinary: No Dysuria, No Frequency, No Incontinence, No Hematuria, No Retention, No Discharge, No Urgency, No Pain, No Flank Pain, No Other, No , No , No , No , No , No , No Musculoskeletal: Yes Muscular Weakness Neurological: No Behavorial Changes, No Bowel/Bladder ControlChng, No Confusion , No Dizziness, No Gait Disturbance, No Headaches, No Impaired Coord/balance, No Memory Loss, No Numbness/Tingling, No Seizures, No Speech Problems, No Tremors, No Visual Changes, No Weakness, No Other Skin: No Dry Skin, No Eczema, No Hair Changes, No Lumps, No Mole Changes, No Mottling, No Nail Changes, No Pruritus, No Rash, No Skin Lesion Changes, No Other, No Acne Physical Exam General: Alert, Oriented X3, Cooperative, No acute distress HEENT: Atraumatic, EOMI, Mucous membr. moist/pink Lungs: Clear to auscultation, Normal air movement Heart: no gallops, no murmurs Abdomen: Normal bowel sounds, Soft, No tenderness, No hepatosplenomegaly Rectal Exam: not examined Extremities: No clubbing, No cyanosis, No edema Skin: No rashes, No breakdown, No significant lesion Neuro: Normal gait, Normal speech, Strength at 5/5 X4 ext, Normal tone, Sensation intact Psych/Mental Status: Mental status NL Vitals Vitals Vital Signs Date Time Temp Pulse Resp B/P (MAP) Pulse Ox O2 Delivery O2 Flow Rate FiO2 07/20/16 08:23 96 Room Air 07/20/16 08:21 83 168/74 07/20/16 07:00 98.0 18 98.0 Labs Labs Laboratory Tests Hgb up to 8.4 today, from 7.3 yesterday and 5.1 on 07/18 (which triggered transfusion of 2U PRBCs VTE Prophylaxis Ordered VTE Prophylaxis Devices: Yes VTE Pharmacological Prophylaxi: Contraindicated Assessment/Plan Assessment/Plan 89 yo M c metastatic urothelial cancer, on active chemotherapy with single- agent gemzar (last dose 07/04/16), transferred from [place] on Thu07/18/16 due to worsened [id number] anemia (Hgb value 4-5g/dL range). He rec'd 2U PRBCs overnight on 07/18/16, and his Hgb value rebounded appropriately. Coags normal. Agree with GI that a awhy-se-doxg approach here is reasonable. Overall prognosis is poor due to cancer diagnosis, but he does not need to be in acute inpt setting now. Transfer back to [facility] so that he can get back to working on strength/conditioning. SYLVESTER FERRER MD July 20, 2016 10:55
[2016-07-20] MEDS ORDERED: POTASSIUM CHLORIDE 20 MEQ TABLET.ER. PO ONE (11:30)
[2016-07-20 12:53] LABS: BASO # 0.1 x10^3/uL (0.0-0.2); BASO % 1 % (0-3); EOS % 1 % (0-3); HEMATOCRIT 24.2 % (39.0-53.0); HEMOGLOBIN 8.4 g/dL (13.0-17.5); LYMPH # 0.7 x10^3/uL (1.0-4.8); LYMPH % 8 % (24-48); MEAN CORPUSCULAR HEMOGLOBIN 35 pg (25-35); MEAN CORPUSCULAR HGB CONC 35 g/dL (31-37); MEAN CORPUSCULAR VOLUME 102 fL (79-100); MONO % 11 % (0-9); NEUT % 79 % (31-73); PLATELET COUNT 326 x10^3/uL (140-400); RED BLOOD COUNT 2.37 x10^6/uL (4.30-5.70); RED CELL DISTRIBUTION WIDTH 19.3 % (11.5-14.5); WHITE BLOOD COUNT 8.7 x10^3/uL (4.0-11.0)
[2016-07-20 13:10] LABS: ALBUMIN 2.5 g/dL (3.4-5.0); ALBUMIN/GLOBULIN RATIO 0.7 (1.0-1.7); CALCIUM 8.2 mg/dL (8.5-10.1); CREATININE 1.1 mg/dL (0.7-1.3); GFR 63.2; POTASSIUM 3.6 mmol/L (3.5-5.1); TOTAL BILIRUBIN 0.3 mg/dL (0.2-1.0); TOTAL PROTEIN 6.3 g/dL (6.4-8.2)
--- NOTE | 2016-07-20 13:18 | PDOC ---
PROGRESS NOTES Chief Complaint Chief Complaint Anemia, 2/2 bladder Ca on chemo , GIB with melena, chronic dz h/o CHF, no details, stable HLD copd, stable depression OA HYPOKALEMIA mild malnutrition plan: fu with GI monitor cbc tmr cont current meds for copd, htn replete K PTOT History of Present Illness History of Present Illness bloody/dark stool today as per nurse low K hb stable Vitals Vitals Vital Signs Date Time Temp Pulse Resp B/P (MAP) Pulse Ox O2 Delivery O2 Flow Rate FiO2 07/20/16 11:40 Room Air 07/20/16 08:23 96 07/20/16 08:21 83 168/74 07/20/16 07:00 98.0 18 98.0 Physical Exam General: Alert, Oriented X3, No acute distress Heart: Regular rate, Normal S1, Normal S2, No murmurs Abdomen: Normal bowel sounds, Soft, No tenderness, No hepatosplenomegaly, No masses Extremities: No cyanosis, No edema Skin: No significant lesion Labs LABS Laboratory Tests Test 07/20/16 12:35 White Blood Count 8.7 x10^3/uL (4.0-11.0) Red Blood Count 2.37 x10^6/uL (4.30-5.70) Hemoglobin 8.4 g/dL (13.0-17.5) Hematocrit 24.2 % (39.0-53.0) Mean Corpuscular Volume 102 fL (79-100) Mean Corpuscular Hemoglobin 35 pg (25-35) Mean Corpuscular Hemoglobin Concent 35 g/dL (31-37) Red Cell Distribution Width 19.3 % (11.5-14.5) Platelet Count 326 x10^3/uL (140-400) Neutrophils (%) (Auto) 79 % (31-73) Lymphocytes (%) (Auto) 8 % (24-48) Monocytes (%) (Auto) 11 % (0-9) Eosinophils (%) (Auto) 1 % (0-3) Basophils (%) (Auto) 1 % (0-3) Neutrophils # (Auto) 6.9 x10^3uL (1.8-7.7) Lymphocytes # (Auto) 0.7 x10^3/uL (1.0-4.8) Monocytes # (Auto) 0.9 x10^3/uL (0.0-1.1) Eosinophils # (Auto) 0.1 x10^3/uL (0.0-0.7) Basophils # (Auto) 0.1 x10^3/uL (0.0-0.2) Sodium Level 143 mmol/L (136-145) Potassium Level 3.6 mmol/L (3.5-5.1) Chloride Level 106 mmol/L (98-107) Carbon Dioxide Level 28 mmol/L (21-32) Anion Gap 9 (6-14) Blood Urea Nitrogen 20 mg/dL (8-26) Creatinine 1.1 mg/dL (0.7-1.3) Estimated GFR (Cockcroft-Gault) 63.2 BUN/Creatinine Ratio 18 (6-20) Glucose Level 120 mg/dL (70-99) Calcium Level 8.2 mg/dL (8.5-10.1) Total Bilirubin 0.3 mg/dL (0.2-1.0) Aspartate Amino Transf (AST/SGOT) 32 U/L (15-37) Alanine Aminotransferase (ALT/SGPT) 31 U/L (16-63) Alkaline Phosphatase 81 U/L (46-116) Total Protein 6.3 g/dL (6.4-8.2) Albumin 2.5 g/dL (3.4-5.0) Albumin/Globulin Ratio 0.7 (1.0-1.7) Review of Systems Review of Systems no fever, chills, sob or chest pain Assessment and Plan Assessmemt and Plan Problems Medical Problems: (1) GI bleed Status: Acute (2) History of bladder cancer Status: Acute (3) Severe anemia Status: Acute Problems: Comment Review of Relevant I have reviewed the following items earnest (where applicable) has been applied. Labs Laboratory Tests Test 07/18/16 19:35 07/18/16 20:00 07/19/16 05:30 07/19/16 06:00 Stool Occult Blood Positive (NEG) White Blood Count 9.7 x10^3/uL (4.0-11.0) 9.8 x10^3/uL (4.0-11.0) Red Blood Count 1.41 x10^6/uL (4.30-5.70) 2.04 x10^6/uL (4.30-5.70) Hemoglobin 5.1 g/dL (13.0-17.5) 7.3 g/dL (13.0-17.5) Hematocrit 15.6 % (39.0-53.0) 21.2 % (39.0-53.0) Mean Corpuscular Volume 111 fL (79-100) 104 fL (79-100) Mean Corpuscular Hemoglobin 37 pg (25-35) 36 pg (25-35) Mean Corpuscular Hemoglobin Concent 33 g/dL (31-37) 34 g/dL (31-37) Red Cell Distribution Width 22.8 % (11.5-14.5) 17.2 % (11.5-14.5) Platelet Count 288 x10^3/uL (140-400) 267 x10^3/uL (140-400) Neutrophils (%) (Auto) 75 % (31-73) 77 % (31-73) Lymphocytes (%) (Auto) 10 % (24-48) 10 % (24-48) Monocytes (%) (Auto) 14 % (0-9) 12 % (0-9) Eosinophils (%) (Auto) 1 % (0-3) 1 % (0-3) Basophils (%) (Auto) 0 % (0-3) 0 % (0-3) Neutrophils # (Auto) 7.3 x10^3uL (1.8-7.7) 7.5 x10^3uL (1.8-7.7) Lymphocytes # (Auto) 0.9 x10^3/uL (1.0-4.8) 1.0 x10^3/uL (1.0-4.8) Monocytes # (Auto) 1.3 x10^3/uL (0.0-1.1) 1.2 x10^3/uL (0.0-1.1) Eosinophils # (Auto) 0.1 x10^3/uL (0.0-0.7) 0.1 x10^3/uL (0.0-0.7) Basophils # (Auto) 0.0 x10^3/uL (0.0-0.2) 0.0 x10^3/uL (0.0-0.2) Segmented Neutrophils % 83 % (35-66) Lymphocytes % 9 % (24-48) Monocytes % 6 % (0-10) Eosinophils % 2 % (0-5) Platelet Estimate Adequate (ADEQUATE) Anisocytosis Mod Macrocytosis Mod Prothrombin Time 13.4 SEC (11.7-14.0) Prothromb Time International Ratio 1.1 (0.8-1.1) Activated Partial Thromboplast Time 29 SEC (24-38) Sodium Level 146 mmol/L (136-145) 145 mmol/L (136-145) Potassium Level 3.5 mmol/L (3.5-5.1) 3.3 mmol/L (3.5-5.1) Chloride Level 109 mmol/L (98-107) 110 mmol/L (98-107) Carbon Dioxide Level 27 mmol/L (21-32) 27 mmol/L (21-32) Anion Gap 10 (6-14) 8 (6-14) Blood Urea Nitrogen 28 mg/dL (8-26) 24 mg/dL (8-26) Creatinine 1.3 mg/dL (0.7-1.3) 1.0 mg/dL (0.7-1.3) Estimated GFR (Cockcroft-Gault) 52.1 70.5 Glucose Level 111 mg/dL (70-99) 90 mg/dL (70-99) Calcium Level 8.4 mg/dL (8.5-10.1) 7.9 mg/dL (8.5-10.1) Total Bilirubin 0.2 mg/dL (0.2-1.0) Direct Bilirubin 0.1 mg/dL (0.0-0.2) Aspartate Amino Transf (AST/SGOT) 45 U/L (15-37) Alanine Aminotransferase (ALT/SGPT) 37 U/L (16-63) Alkaline Phosphatase 83 U/L (46-116) Total Protein 5.5 g/dL (6.4-8.2) Albumin 2.5 g/dL (3.4-5.0) Iron Level 106 ug/dL (65-175) Total Iron Binding Capacity 211 ug/dL (250-450) Iron Saturation 50 % (15-34) Nasal Screen MRSA (PCR) Negative (Negative) Test 07/20/16 12:35 White Blood Count 8.7 x10^3/uL (4.0-11.0) Red Blood Count 2.37 x10^6/uL (4.30-5.70) Hemoglobin 8.4 g/dL (13.0-17.5) Hematocrit 24.2 % (39.0-53.0) Mean Corpuscular Volume 102 fL (79-100) Mean Corpuscular Hemoglobin 35 pg (25-35) Mean Corpuscular Hemoglobin Concent 35 g/dL (31-37) Red Cell Distribution Width 19.3 % (11.5-14.5) Platelet Count 326 x10^3/uL (140-400) Neutrophils (%) (Auto) 79 % (31-73) Lymphocytes (%) (Auto) 8 % (24-48) Monocytes (%) (Auto) 11 % (0-9) Eosinophils (%) (Auto) 1 % (0-3) Basophils (%) (Auto) 1 % (0-3) Neutrophils # (Auto) 6.9 x10^3uL (1.8-7.7) Lymphocytes # (Auto) 0.7 x10^3/uL (1.0-4.8) Monocytes # (Auto) 0.9 x10^3/uL (0.0-1.1) Eosinophils # (Auto) 0.1 x10^3/uL (0.0-0.7) Basophils # (Auto) 0.1 x10^3/uL (0.0-0.2) Sodium Level 143 mmol/L (136-145) Potassium Level 3.6 mmol/L (3.5-5.1) Chloride Level 106 mmol/L (98-107) Carbon Dioxide Level 28 mmol/L (21-32) Anion Gap 9 (6-14) Blood Urea Nitrogen 20 mg/dL (8-26) Creatinine 1.1 mg/dL (0.7-1.3) Estimated GFR (Cockcroft-Gault) 63.2 BUN/Creatinine Ratio 18 (6-20) Glucose Level 120 mg/dL (70-99) Calcium Level 8.2 mg/dL (8.5-10.1) Total Bilirubin 0.3 mg/dL (0.2-1.0) Aspartate Amino Transf (AST/SGOT) 32 U/L (15-37) Alanine Aminotransferase (ALT/SGPT) 31 U/L (16-63) Alkaline Phosphatase 81 U/L (46-116) Total Protein 6.3 g/dL (6.4-8.2) Albumin 2.5 g/dL (3.4-5.0) Albumin/Globulin Ratio 0.7 (1.0-1.7) Laboratory Tests Test 07/20/16 12:35 White Blood Count 8.7 x10^3/uL (4.0-11.0) Red Blood Count 2.37 x10^6/uL (4.30-5.70) Hemoglobin 8.4 g/dL (13.0-17.5) Hematocrit 24.2 % (39.0-53.0) Mean Corpuscular Volume 102 fL (79-100) Mean Corpuscular Hemoglobin 35 pg (25-35) Mean Corpuscular Hemoglobin Concent 35 g/dL (31-37) Red Cell Distribution Width 19.3 % (11.5-14.5) Platelet Count 326 x10^3/uL (140-400) Neutrophils (%) (Auto) 79 % (31-73) Lymphocytes (%) (Auto) 8 % (24-48) Monocytes (%) (Auto) 11 % (0-9) Eosinophils (%) (Auto) 1 % (0-3) Basophils (%) (Auto) 1 % (0-3) Neutrophils # (Auto) 6.9 x10^3uL (1.8-7.7) Lymphocytes # (Auto) 0.7 x10^3/uL (1.0-4.8) Monocytes # (Auto) 0.9 x10^3/uL (0.0-1.1) Eosinophils # (Auto) 0.1 x10^3/uL (0.0-0.7) Basophils # (Auto) 0.1 x10^3/uL (0.0-0.2) Sodium Level 143 mmol/L (136-145) Potassium Level 3.6 mmol/L (3.5-5.1) Chloride Level 106 mmol/L (98-107) Carbon Dioxide Level 28 mmol/L (21-32) Anion Gap 9 (6-14) Blood Urea Nitrogen 20 mg/dL (8-26) Creatinine 1.1 mg/dL (0.7-1.3) Estimated GFR (Cockcroft-Gault) 63.2 BUN/Creatinine Ratio 18 (6-20) Glucose Level 120 mg/dL (70-99) Calcium Level 8.2 mg/dL (8.5-10.1) Total Bilirubin 0.3 mg/dL (0.2-1.0) Aspartate Amino Transf (AST/SGOT) 32 U/L (15-37) Alanine Aminotransferase (ALT/SGPT) 31 U/L (16-63) Alkaline Phosphatase 81 U/L (46-116) Total Protein 6.3 g/dL (6.4-8.2) Albumin 2.5 g/dL (3.4-5.0) Albumin/Globulin Ratio 0.7 (1.0-1.7) Medications Current Medications Sodium Chloride 1,000 ml @ 1,000 mls/hr 1X ONCE IV Last administered on 20:30; Start 07/18/16 at 20:30; Stop 07/18/16 at 21:29; Status DC Ondansetron HCl (Zofran) 4 mg PRN Q8HRS PRN IV NAUSEA/VOMITING; Start 07/18/16 at 20:15; Stop 07/19/16 at 20:14; Status DC Morphine Sulfate 2 mg PRN Q2HR PRN IV PAIN; Start 07/18/16 at 20:15; Stop 07/19 at 20:14; Status DC Sodium Chloride 1,000 ml @ 125 mls/hr Q8H IV Last administered on 07/18/16 22 :00; Start 07/18/16 at 22:00; Stop 07/19/16 at 05:44; Status DC Non-Formulary Medication 2 inhaler QID IH ; Start 07/19/16 at 09:00; Status UNV Nystatin 5 ml [id number] Last administered on 07/20/16 08:19; Start at 22:30 Albuterol/ Ipratropium (Duoneb) 3 ml RTQID NEB Last administered on 07/20/16 11:39; Start 07/19/16 at 08:00 Albuterol/ Ipratropium (Duoneb) 3 ml 1X ONCE NEB ; Start 07/18/16 at 22:30; Stop 07/18/16 at 22:31; Status DC Sodium Chloride 1,000 ml @ 75 mls/hr [id number] IV Last administered on 06:00; Start 07/19/16 at 06:00; Stop 07/19/16 at 21:18; Status DC Citalopram Hydrobromide (CeleXA) 10 mg DAILY PO Last administered on 07/20/16 08:20; Start 07/19/16 at 13:00 Acetaminophen/ Hydrocodone Bitart (Lortab 5/325) . QIDPRN PRN PO MODERATE TO SEVERE PAIN; Start 07/19/16 at 12:30 Lorazepam (Ativan) 1 mg TID PO ; Start 07/19/16 at 14:00; Stop 07/19/16 at 14:00 ; Status DC Simvastatin (Zocor) 20 mg QHS PO Last administered on 07/19/16 20:49; Start at 21:00; Stop 07/19/16 at 21:21; Status DC Lorazepam (Ativan) 1 mg PRN TID PRN PO ANXIETY / AGITATION Last administered on 07/20/16 01:13; Start 07/19/16 at 14:00 Potassium Chloride 50 ml @ 50 mls/hr 1X ONCE IV ; Start 07/19/16 at 13:00; Stop 07/19/16 at 13:59; Status Cancel Levofloxacin/ Dextrose 50 ml @ 50 mls/hr Q24H IV ; Start 07/19/16 at 13:00; Status Cancel Potassium Chloride (Klor-Con) 20 meq 1X ONCE PO Last administered on 13:33; Start 07/19/16 at 13:15; Stop 07/19/16 at 13:16; Status DC Amlodipine Besylate (Norvasc) 10 mg DAILY PO Last administered on 07/20/16 08: 21; Start 07/19/16 at 21:30 Atorvastatin Calcium (Lipitor) 10 mg QHS PO ; Start 07/20/16 at 21:00 Metoprolol Tartrate (Lopressor) 25 mg BID PO Last administered on 07/20/16 08: 20; Start 07/20/16 at 01:00 Potassium Chloride (Klor-Con) 40 meq 1X ONCE PO ; Start 07/20/16 at 11:30; Stop 07/20/16 at 11:30; Status DC Active Scripts Active Reported Zofran (Ondansetron Hcl) 4 Mg Tablet 1 Tab PO Q6HRS Lorazepam 1 Mg Tablet 1 Tab PO TID Simvastatin 20 Mg Tablet 1 Tab PO QHS Combivent Respimat Inhal (Ipratropium/Albuterol Sulfate) 4 Gm Aer.w.adap 2 Inhaler IH QID [place] 5-325 Tablet (Acetaminophen/Hydrocodone Bitart) 1 Each Tablet 1-2 Tab PO Q4-6HRS Nystatin 100,000 Unit/1 Ml Oral.susp 5 Ml PO QID Celexa (Citalopram Hydrobromide) 10 Mg Tablet 1 Tab PO DAILY Aspir 81 (Aspirin) 81 Mg Tablet.dr 1 Tab PO DAILY Atrovent Hfa (Ipratropium [place]) 12.9 Gm Hfa.aer.ad 12.9 Gm IH Vitals/I & O Vital Sign - Last 24 Hours 07/19/16 07/19/16 07/19/16 07/19/16 15:00 16:00 16:13 19:25 Temp 97.8 98.1 97.8 98.1 Pulse 79 79 Resp 28 18 B/P (MAP) 155/61 (92) 159/68 (98) Pulse Ox 98 97 95 O2 Delivery Room Air Room Air Room Air Room Air 07/19/16 07/19/16 07/19/16 07/20/16 20:00 20:45 21:30 00:05 Temp 97.9 98.1 97.9 98.1 Pulse 92 92 87 Resp 18 18 B/P (MAP) 177/78 (111) 177/78 188/79 (115) Pulse Ox 96 93 O2 Delivery Room Air Room Air Room Air 07/20/16 07/20/16 07/20/16 07/20/16 01:13 03:26 07:00 08:00 Temp 98.0 98.0 98.0 98.0 Pulse 87 80 83 Resp 18 18 B/P (MAP) 188/79 129/56 (80) 168/74 (105) Pulse Ox 94 95 O2 Delivery Room Air Room Air Room Air 07/20/16 07/20/16 07/20/16 07/20/16 08:20 08:21 08:23 11:40 Pulse 83 83 B/P (MAP) 168/74 168/74 Pulse Ox 96 O2 Delivery Room Air Room Air Intake and Output 07/19/16 07/19/16 07/20/16 15:00 23:00 07:00 Intake Total 150 ml 200 ml 400 ml Output Total 45 ml 600 ml 300 ml Balance 105 ml -400 ml 100 ml RON ROSA MD July 20, 2016 13:18
[2016-07-20] MEDS ORDERED: traMADol 50 MG TABLET PO PRN (13:30)
[2016-07-20] MEDS ORDERED: hydrALAZINE 20 MG/ML VIAL. IVP PRN (13:30)
[2016-07-20] MEDS ORDERED: ACETAMINOPHEN 325 MG TABLET. PO PRN (13:30)
[2016-07-20] MEDS ORDERED: MORPHINE SULFATE 2 MG/ML DISP.SYRIN. IV PRN (13:30)
[2016-07-20] MEDS ORDERED: DOCUSATE SODIUM 100 MG CAPSULE. PO PRN (13:30)
[2016-07-20] MEDS ORDERED: ONDANSETRON PF 4 MG/2 ML VIAL. IV PRN (13:30)
[2016-07-20 15:00] VITALS: BP 142/59
[2016-07-20] MEDS ORDERED: BUSP5TAB (16:30)
[2016-07-20] MEDS ORDERED: CITA10TA4 (16:31)
[2016-07-20 19:49] VITALS: BP 153/72
[2016-07-20] MEDS ORDERED: ATORVASTATIN CALCIUM 10 MG TABLET. PO SCH (21:00)
[2016-07-20 23:10] VITALS: BP 167/74
[2016-07-21 03:44] LABS: BASO % 1 % (0-3); EOS % 2 % (0-3); HEMATOCRIT 22.5 % (39.0-53.0); HEMOGLOBIN 7.6 g/dL (13.0-17.5); LYMPH # 0.9 x10^3/uL (1.0-4.8); LYMPH % 14 % (24-48); MEAN CORPUSCULAR HEMOGLOBIN 35 pg (25-35); MEAN CORPUSCULAR HGB CONC 34 g/dL (31-37); MEAN CORPUSCULAR VOLUME 103 fL (79-100); MONO % 14 % (0-9); NEUT % 70 % (31-73); PLATELET COUNT 317 x10^3/uL (140-400); RED BLOOD COUNT 2.18 x10^6/uL (4.30-5.70); RED CELL DISTRIBUTION WIDTH 19.3 % (11.5-14.5); WHITE BLOOD COUNT 6.2 x10^3/uL (4.0-11.0)
[2016-07-21 03:55] VITALS: BP 118/44
[2016-07-21 04:04] LABS: CALCIUM 8.3 mg/dL (8.5-10.1); GFR 70.5; POTASSIUM 3.3 mmol/L (3.5-5.1)
[2016-07-21 07:00] VITALS: BP 161/71
[2016-07-21] MEDS: IPRATRPIUM/ALBUTEROL 0.5/2.5MG 3 ML NEBU. NEB SCH (07:31)
[2016-07-21] MEDS: CITALOPRAM 10 MG TABLET. PO SCH (07:38)
[2016-07-21] MEDS: METOPROLOL TART IMMED RELEASE 25 MG TABLET. PO SCH (07:38)
[2016-07-21] MEDS: amLODIPine BESYLATE 10 MG TABLET PO SCH (07:39)
[2016-07-21] MEDS: NYSTATIN 100,000 UNITS/ML 5 ML ORAL.SUSP. SWSW SCH (07:46)
[2016-07-21 08:57] LABS: FOLATE 4.96 ng/ml (3.2-20.0)
--- NOTE | 2016-07-21 08:58 | PDOC ---
G I PROGRESS NOTE Subjective No complaints. Says "tore into breakfast". Denies pain. Objective Small amount of overt blood in stool per staff yesterday. Physical Exam Lungs clear. RRR Abdomen soft, not tender nor distended. Review of Relevant I have reviewed the following items earnest (where applicable) has been applied. Labs Laboratory Tests Test 07/20/16 12:35 07/21/16 03:05 07/21/16 03:08 White Blood Count 8.7 x10^3/uL (4.0-11.0) 6.2 x10^3/uL (4.0-11.0) Red Blood Count 2.37 x10^6/uL (4.30-5.70) 2.18 x10^6/uL (4.30-5.70) Hemoglobin 8.4 g/dL (13.0-17.5) 7.6 g/dL (13.0-17.5) Hematocrit 24.2 % (39.0-53.0) 22.5 % (39.0-53.0) Mean Corpuscular Volume 102 fL (79-100) 103 fL (79-100) Mean Corpuscular Hemoglobin 35 pg (25-35) 35 pg (25-35) Mean Corpuscular Hemoglobin Concent 35 g/dL (31-37) 34 g/dL (31-37) Red Cell Distribution Width 19.3 % (11.5-14.5) 19.3 % (11.5-14.5) Platelet Count 326 x10^3/uL (140-400) 317 x10^3/uL (140-400) Neutrophils (%) (Auto) 79 % (31-73) 70 % (31-73) Lymphocytes (%) (Auto) 8 % (24-48) 14 % (24-48) Monocytes (%) (Auto) 11 % (0-9) 14 % (0-9) Eosinophils (%) (Auto) 1 % (0-3) 2 % (0-3) Basophils (%) (Auto) 1 % (0-3) 1 % (0-3) Neutrophils # (Auto) 6.9 x10^3uL (1.8-7.7) 4.3 x10^3uL (1.8-7.7) Lymphocytes # (Auto) 0.7 x10^3/uL (1.0-4.8) 0.9 x10^3/uL (1.0-4.8) Monocytes # (Auto) 0.9 x10^3/uL (0.0-1.1) 0.8 x10^3/uL (0.0-1.1) Eosinophils # (Auto) 0.1 x10^3/uL (0.0-0.7) 0.1 x10^3/uL (0.0-0.7) Basophils # (Auto) 0.1 x10^3/uL (0.0-0.2) 0.0 x10^3/uL (0.0-0.2) Sodium Level 143 mmol/L (136-145) 143 mmol/L (136-145) Potassium Level 3.6 mmol/L (3.5-5.1) 3.3 mmol/L (3.5-5.1) Chloride Level 106 mmol/L (98-107) 108 mmol/L (98-107) Carbon Dioxide Level 28 mmol/L (21-32) 26 mmol/L (21-32) Anion Gap 9 (6-14) 9 (6-14) Blood Urea Nitrogen 20 mg/dL (8-26) 22 mg/dL (8-26) Creatinine 1.1 mg/dL (0.7-1.3) 1.0 mg/dL (0.7-1.3) Estimated GFR (Cockcroft-Gault) 63.2 70.5 BUN/Creatinine Ratio 18 (6-20) Glucose Level 120 mg/dL (70-99) 100 mg/dL (70-99) Calcium Level 8.2 mg/dL (8.5-10.1) 8.3 mg/dL (8.5-10.1) Total Bilirubin 0.3 mg/dL (0.2-1.0) Aspartate Amino Transf (AST/SGOT) 32 U/L (15-37) Alanine Aminotransferase (ALT/SGPT) 31 U/L (16-63) Alkaline Phosphatase 81 U/L (46-116) Total Protein 6.3 g/dL (6.4-8.2) Albumin 2.5 g/dL (3.4-5.0) Albumin/Globulin Ratio 0.7 (1.0-1.7) Laboratory Tests Test 07/20/16 12:35 07/21/16 03:05 07/21/16 03:08 White Blood Count 8.7 x10^3/uL (4.0-11.0) 6.2 x10^3/uL (4.0-11.0) Red Blood Count 2.37 x10^6/uL (4.30-5.70) 2.18 x10^6/uL (4.30-5.70) Hemoglobin 8.4 g/dL (13.0-17.5) 7.6 g/dL (13.0-17.5) Hematocrit 24.2 % (39.0-53.0) 22.5 % (39.0-53.0) Mean Corpuscular Volume 102 fL (79-100) 103 fL (79-100) Mean Corpuscular Hemoglobin 35 pg (25-35) 35 pg (25-35) Mean Corpuscular Hemoglobin Concent 35 g/dL (31-37) 34 g/dL (31-37) Red Cell Distribution Width 19.3 % (11.5-14.5) 19.3 % (11.5-14.5) Platelet Count 326 x10^3/uL (140-400) 317 x10^3/uL (140-400) Neutrophils (%) (Auto) 79 % (31-73) 70 % (31-73) Lymphocytes (%) (Auto) 8 % (24-48) 14 % (24-48) Monocytes (%) (Auto) 11 % (0-9) 14 % (0-9) Eosinophils (%) (Auto) 1 % (0-3) 2 % (0-3) Basophils (%) (Auto) 1 % (0-3) 1 % (0-3) Neutrophils # (Auto) 6.9 x10^3uL (1.8-7.7) 4.3 x10^3uL (1.8-7.7) Lymphocytes # (Auto) 0.7 x10^3/uL (1.0-4.8) 0.9 x10^3/uL (1.0-4.8) Monocytes # (Auto) 0.9 x10^3/uL (0.0-1.1) 0.8 x10^3/uL (0.0-1.1) Eosinophils # (Auto) 0.1 x10^3/uL (0.0-0.7) 0.1 x10^3/uL (0.0-0.7) Basophils # (Auto) 0.1 x10^3/uL (0.0-0.2) 0.0 x10^3/uL (0.0-0.2) Sodium Level 143 mmol/L (136-145) 143 mmol/L (136-145) Potassium Level 3.6 mmol/L (3.5-5.1) 3.3 mmol/L (3.5-5.1) Chloride Level 106 mmol/L (98-107) 108 mmol/L (98-107) Carbon Dioxide Level 28 mmol/L (21-32) 26 mmol/L (21-32) Anion Gap 9 (6-14) 9 (6-14) Blood Urea Nitrogen 20 mg/dL (8-26) 22 mg/dL (8-26) Creatinine 1.1 mg/dL (0.7-1.3) 1.0 mg/dL (0.7-1.3) Estimated GFR (Cockcroft-Gault) 63.2 70.5 BUN/Creatinine Ratio 18 (6-20) Glucose Level 120 mg/dL (70-99) 100 mg/dL (70-99) Calcium Level 8.2 mg/dL (8.5-10.1) 8.3 mg/dL (8.5-10.1) Total Bilirubin 0.3 mg/dL (0.2-1.0) Aspartate Amino Transf (AST/SGOT) 32 U/L (15-37) Alanine Aminotransferase (ALT/SGPT) 31 U/L (16-63) Alkaline Phosphatase 81 U/L (46-116) Total Protein 6.3 g/dL (6.4-8.2) Albumin 2.5 g/dL (3.4-5.0) Albumin/Globulin Ratio 0.7 (1.0-1.7) Hemoglobin seems to be waffling w/in lab's error of measurement. B12 and folate pending. Medications Current Medications Sodium Chloride 1,000 ml @ 1,000 mls/hr 1X ONCE IV Last administered on 20:30; Start 07/18/16 at 20:30; Stop 07/18/16 at 21:29; Status DC Ondansetron HCl (Zofran) 4 mg PRN Q8HRS PRN IV NAUSEA/VOMITING; Start 07/18/16 at 20:15; Stop 07/19/16 at 20:14; Status DC Morphine Sulfate 2 mg PRN Q2HR PRN IV PAIN; Start 07/18/16 at 20:15; Stop 07/19 at 20:14; Status DC Sodium Chloride 1,000 ml @ 125 mls/hr Q8H IV Last administered on 07/18/16 22 :00; Start 07/18/16 at 22:00; Stop 07/19/16 at 05:44; Status DC Non-Formulary Medication 2 inhaler QID IH ; Start 07/19/16 at 09:00; Status UNV Nystatin 5 ml [id number] Last administered on 07/21/16 07:46; Start at 22:30 Albuterol/ Ipratropium (Duoneb) 3 ml RTQID NEB Last administered on 07/21/16 07:31; Start 07/19/16 at 08:00 Albuterol/ Ipratropium (Duoneb) 3 ml 1X ONCE NEB ; Start 07/18/16 at 22:30; Stop 07/18/16 at 22:31; Status DC Sodium Chloride 1,000 ml @ 75 mls/hr [id number] IV Last administered on 06:00; Start 07/19/16 at 06:00; Stop 07/19/16 at 21:18; Status DC Citalopram Hydrobromide (CeleXA) 10 mg DAILY PO Last administered on 07/21/16 07:38; Start 07/19/16 at 13:00 Acetaminophen/ Hydrocodone Bitart (Lortab 5/325) . QIDPRN PRN PO MODERATE TO SEVERE PAIN; Start 07/19/16 at 12:30 Lorazepam (Ativan) 1 mg TID PO ; Start 07/19/16 at 14:00; Stop 07/19/16 at 14:00 ; Status DC Simvastatin (Zocor) 20 mg QHS PO Last administered on 07/19/16 20:49; Start at 21:00; Stop 07/19/16 at 21:21; Status DC Lorazepam (Ativan) 1 mg PRN TID PRN PO ANXIETY / AGITATION Last administered on 07/20/16 01:13; Start 07/19/16 at 14:00 Potassium Chloride 50 ml @ 50 mls/hr 1X ONCE IV ; Start 07/19/16 at 13:00; Stop 07/19/16 at 13:59; Status Cancel Levofloxacin/ Dextrose 50 ml @ 50 mls/hr Q24H IV ; Start 07/19/16 at 13:00; Status Cancel Potassium Chloride (Klor-Con) 20 meq 1X ONCE PO Last administered on 13:33; Start 07/19/16 at 13:15; Stop 07/19/16 at 13:16; Status DC Amlodipine Besylate (Norvasc) 10 mg DAILY PO Last administered on 07/21/16 07: 39; Start 07/19/16 at 21:30 Atorvastatin Calcium (Lipitor) 10 mg QHS PO Last administered on 07/20/16 21: 01; Start 07/20/16 at 21:00 Metoprolol Tartrate (Lopressor) 25 mg BID PO Last administered on 07/21/16 07: 38; Start 07/20/16 at 01:00 Potassium Chloride (Klor-Con) 40 meq 1X ONCE PO ; Start 07/20/16 at 11:30; Stop 07/20/16 at 11:30; Status DC Acetaminophen (Tylenol) 650 mg PRN Q6HRS PRN PO FEVER; Start 07/20/16 at 13:30 Ondansetron HCl (Zofran) 4 mg PRN Q6HRS PRN IV NAUSEA/VOMITING; Start 07/20/16 at 13:30 Morphine Sulfate 2 mg PRN Q2HR PRN IV PAIN; Start 07/20/16 at 13:30 Tramadol HCl (Ultram) 50 mg PRN Q6HRS PRN PO PAIN; Start 07/20/16 at 13:30 Hydralazine HCl (Apresoline) 10 mg PRN Q4HRS PRN IVP ELEVATED BP, SEE COMMENTS ; Start 07/20/16 at 13:30 Docusate Sodium (Colace) 100 mg PRN DAILY PRN PO CONSTIPATION; Start 07/20/16 at 13:30 Potassium Chloride (Klor-Con) 40 meq 1X ONCE PO ; Start 07/21/16 at 09:00; Stop 07/21/16 at 09:01; Status UNV Ferrous Sulfate (Feosol) 325 mg DAILYWBKFT PO ; Start 07/22/16 at 08:00; Status UNV Active Scripts Active Reported Citalopram Hbr (Citalopram Hydrobromide) 10 Mg Tablet 10 Buspirone Hcl 5 Mg Tablet 5 Zofran (Ondansetron Hcl) 4 Mg Tablet 1 Tab PO Q6HRS Lorazepam 1 Mg Tablet 1 Tab PO TID Simvastatin 20 Mg Tablet 1 Tab PO QHS Combivent Respimat Inhal (Ipratropium/Albuterol Sulfate) 4 Gm Aer.w.adap 2 Inhaler IH QID [place] 5-325 Tablet (Acetaminophen/Hydrocodone Bitart) 1 Each Tablet 1-2 Tab PO Q4-6HRS Nystatin 100,000 Unit/1 Ml Oral.susp 5 Ml PO QID Celexa (Citalopram Hydrobromide) 10 Mg Tablet 1 Tab PO DAILY Aspir 81 (Aspirin) 81 Mg Tablet.dr 1 Tab PO DAILY Atrovent Hfa (Ipratropium [place]) 12.9 Gm Hfa.aer.ad 12.9 Gm IH Vitals/I & O Vital Sign - Last 24 Hours 07/20/16 07/20/16 07/20/16 07/20/16 11:40 15:00 16:04 19:30 Temp 97.9 97.9 Pulse 81 Resp 16 B/P (MAP) 142/59 (86) Pulse Ox 98 O2 Delivery Room Air Room Air Room Air Room Air 07/20/16 07/20/16 07/20/16 07/20/16 19:49 20:00 21:01 23:10 Temp 97.8 97.9 97.8 97.9 Pulse 83 83 84 Resp 16 16 B/P (MAP) 153/72 (99) 153/72 167/74 (105) Pulse Ox 96 94 O2 Delivery Room Air Room Air Room Air 07/21/16 07/21/16 07/21/16 07/21/16 03:55 07:00 07:31 07:38 Temp 98.3 98.2 98.3 98.2 Pulse 75 75 75 Resp 16 18 B/P (MAP) 118/44 (68) 161/71 (101) 161/71 Pulse Ox 97 96 96 O2 Delivery Room Air Room Air Room Air 07/21/16 07/21/16 07:39 08:00 Pulse 75 B/P (MAP) 161/71 O2 Delivery Room Air Intake and Output 07/20/16 07/20/16 07/21/16 15:00 23:00 07:00 Intake Total 540 ml 290 ml Balance 540 ml 290 ml Problem List Problems Medical Problems: (1) GI bleed Status: Acute (2) History of bladder cancer Status: Acute (3) Severe anemia Status: Acute Assessment Anemia, multifactorial. Metastatic urothelial malignancy. No significant overt bleeding. Plan of Care Note Given advanced other malignancy, vigorous GI w/u seems not indicated as not likely would specifically address any lesion found. Continue prn transfusions, f/u pending studies and address any deficiencies found. Case discuss with Dr. Luciano; OK with me to dismiss at your discretion. NIVIA BUCHANAN MD July 21, 2016 08:58
[2016-07-21] MEDS ORDERED: POTASSIUM CHLORIDE 20 MEQ TABLET.ER. PO ONE (09:00)
[2016-07-21] MEDS ORDERED: AMLO10TA2 PO (09:25)
[2016-07-21] MEDS ORDERED: METO25TA4 PO (09:25)
[2016-07-21] MEDS ORDERED: FERR325T72 PO (09:25)
[2016-07-21] MEDS ORDERED: HEPARIN PF 500 UNIT/5 ML DISP.SYRIN. IV ONE (10:45)
[2016-07-21 10:52] VITALS: BP 132/54
--- NOTE | 2016-07-21 11:42 | PDOC3 ---
Discharge Summary [facility] Date of Admission: July 18, 2016 Discharge Date: July 21, 2016 Admitting Diagnosis Anemia, 2/2 bladder Ca on chemo , GIB with melena, chronic dz h/o CHF, no details, stable HLD copd, stable depression OA HYPOKALEMIA mild malnutrition Problems: Final Diagnosis CONSULTS gi, onco Brief Hospital Course Mr. Vega is a 89 old M, [facility], current bladder Ca on chemo , was sent for Hb 5.1. Pt's Hb stable post transfusion. He cont having mild melena, Hb Not significantly drop. given his age, and commobidities, GI doesnot recommend colonoscopy. pt had sigmoidoscopy before, neg. dc back to resort, iron po. dc time 35min General: Alert, Oriented X3, No acute distress Heart: Regular rate, Normal S1, Normal S2, No murmurs Abdomen: Normal bowel sounds, Soft, No tenderness, No hepatosplenomegaly, No masses Extremities: No cyanosis, No edema Skin: No significant lesion Patient History: Problems: Disposition rehab CONDITION AT DISCHARGE: Improved Diet cardiac Scheduled Amlodipine Besylate (Amlodipine Besylate), 10 MG PO DAILY Citalopram Hydrobromide (Celexa), 1 TAB PO DAILY, (Reported) Ferrous Sulfate (Feosol), 325 MG PO DAILYWBKFT Hydrocodone/Apap 5-325 ([place] 5-325 Tablet), 1-2 TAB PO Q4-6HRS, (Reported) Ipratropium/Albuterol Sulfate (Combivent Respimat Inhal), 2 INHALER IH QID, ( Reported) Lorazepam (Lorazepam), 1 TAB PO TID, (Reported) Metoprolol Tartrate (Metoprolol Tartrate), 25 MG PO BID Nystatin (Nystatin), 5 ML PO QID, (Reported) Ondansetron Hcl (Zofran), 1 TAB PO Q6HRS, (Reported) Simvastatin (Simvastatin), 1 TAB PO QHS, (Reported) Miscellaneous Medications Buspirone Hcl (Buspirone Hcl), 5, (Reported) Citalopram Hydrobromide (Citalopram Hbr), 10, (Reported) Ipratropium [place] (Atrovent Hfa), 12.9 GM IH, (Reported) Discontinued Medications Aspirin (Aspir 81), 1 TAB PO DAILY, (Reported) Follow Up pcp in2 weeks RON ROSA MD July 21, 2016 11:42
[2016-07-22] MEDS ORDERED: FERROUS SULFATE 325 MG TABLET. PO SCH (08:00)
== END 2016-07-21 11:12 | DRG 687 ==
LOC: ER 19:30 → 1 WEST ICU 20:10 → 6 SOUTH 07-19 15:00
PROVIDERS: ADMIT Internal Medicine; ATTEND Internal Medicine
PROC: 30233N1 Transfusion of Nonautologous Red Blood Cells into Peripheral Vein, Percutaneous Approach (ICD-10-PCS; principal; 2016-07-18)
DX: C67.9 Malignant neoplasm of bladder, unspecified (principal); K92.2 Gastrointestinal hemorrhage, unspecified; E44.1 Mild protein-calorie malnutrition; D62 Acute posthemorrhagic anemia; E78.5 Hyperlipidemia, unspecified; E87.6 Hypokalemia; F32.9 Major depressive disorder, single episode, unspecified; K59.09 Other constipation; J44.9 Chronic obstructive pulmonary disease, unspecified; I50.9 Heart failure, unspecified; D63.0 Anemia in neoplastic disease; F41.9 Anxiety disorder, unspecified; M19.90 Unspecified osteoarthritis, unspecified site; Z79.899 Other long term (current) drug therapy; Z79.82 Long term (current) use of aspirin; Z82.49 Family history of ischemic heart disease and other diseases of the circulatory system; Z87.891 Personal history of nicotine dependence; Z90.5 Acquired absence of kidney; Z92.21 Personal history of antineoplastic chemotherapy; Z87.01 Personal history of pneumonia (recurrent); Z85.05 Personal history of malignant neoplasm of liver; Z85.830 Personal history of malignant neoplasm of bone; Z88.8 Allergy status to other drugs, medicaments and biological substances; Z68.23 Body mass index [BMI] 23.0-23.9, adult; Z79.1 Long term (current) use of non-steroidal anti-inflammatories (NSAID)
CPT/HCPCS: 36415; 80048; 80053; 80076; 82274; 82607; 82746; 83540; 83550; 85007; 85027; 85610; 85730; 86850; 86900; 86901; 86920; 87641; 94250; 94640; 94760; 96360; J7030; J7620; P9016; 97116; 99291-25